=== PATIENT | male | born 1970 | race Caucasian/White ===

== ENCOUNTER 2023-08-03 01:05 | Emergency (ER) | payer BC ==
[2023-08-03 01:57] VITALS: BP 123/62; PULSE 78
== END 2023-08-03 01:57 | disposition home or self-care (01) ==
LOC: JD.ED 01:05
DX: S86.112A Strain of other muscle(s) and tendon(s) of posterior muscle group at lower leg level, left leg, initial encounter (principal)
CPT/HCPCS: 99282; 99283

== ENCOUNTER 2023-09-04 04:31 | Emergency (ER) | payer BC ==
[2023-09-04 04:49] VITALS: BP 137/92; PULSE 91
== END 2023-09-04 05:28 | disposition left against medical advice (07) ==
LOC: JD.ED 04:31
DX: Z53.29 Procedure and treatment not carried out because of patient's decision for other reasons (principal); F17.210 Nicotine dependence, cigarettes, uncomplicated; Z79.899 Other long term (current) drug therapy
CPT/HCPCS: 99283